=== PATIENT | female | born 1950 | race Caucasian/White ===

== ENCOUNTER 2017-09-03 15:07 | Emergency (ER) | payer MEDICARE, BC ==
[2017-09-03] MEDS ORDERED: fentaNYL 100 MCG/2 ML SDV ONE (15:23)
[2017-09-03] MEDS ORDERED: fentaNYL 100 MCG/2 ML SDV IM ONE (15:29)
[2017-09-03] MEDS ORDERED: fentaNYL 100 MCG/2 ML SDV IVPUSH ONE ×2 (17:23→17:45)
--- NOTE | 2017-09-03 17:38 | EDM.PDOC ---
ED HPI GENERAL MEDICAL PROBLEM - General Chief Complaint: Abdominal Pain Stated Complaint: ABD PAIN Time Seen by Provider: 09/03/17 15:20 Source of Information: Reports: Patient History Limitations: Reports: No Limitations - History of Present Illness INITIAL COMMENTS - FREE TEXT/NARRATIVE: States about noon today she started coughing hard and suddenly developed sharp pain in the right lower quadrant that has become worse. Has noted a lump in the area that is very tender. has never had pain like this in the past. No nausea or vomiting. Did have normal bowel movement yesterday. Has had appy in the past. Last oral intake was at 0600. No nausea or vomiting noted. Onset: Sudden Location: Reports: Pelvis Quality: Reports: Sharp Associated Symptoms: Denies: Fever/Chills, Nausea/Vomiting Right Lower Abdomen Pain Score (Numeric/FACES): 10 - Related Data Allergies Allergy/AdvReac Type Severity Reaction Status Date / Time codeine Allergy Itching Verified 09/03/17 15:16 Home Meds: Home Meds . [No Known Home Meds] 09/03/17 [History] Past Medical History - Past Surgical History GI Surgical History: Reports: Appendectomy Female Surgical History: Reports: Hysterectomy Social & Family History - Family History Family Medical History: Noncontributory - Tobacco Use Smoking Status *Q: Never Smoker - Caffeine Use Caffeine Use: Reports: None - Recreational Drug Use Recreational Drug Use: No ED ROS GENERAL - Review of Systems Review Of Systems: See Below Constitutional: Denies: Fever, Chills HEENT: Reports: No Symptoms Respiratory: Reports: No Symptoms Cardiovascular: Reports: No Symptoms GI/Abdominal: Reports: Abdominal Pain Musculoskeletal: Reports: No Symptoms Skin: Reports: No Symptoms Neurological: Reports: No Symptoms Psychiatric: Reports: No Symptoms ED EXAM, GI/ABD - Physical Exam Exam: See Below Exam Limited By: No Limitations General Appearance: Alert, WD/WN, Moderate Distress Ears: Normal External Exam, Normal Canal Nose: Normal Inspection Throat/Mouth: Normal Inspection, Normal Oropharynx, No Airway Compromise Head: Atraumatic, Normocephalic Neck: Normal Inspection, Supple, Non-Tender Respiratory/Chest: No Respiratory Distress, Lungs Clear, Normal Breath Sounds Cardiovascular: Regular Rate, Rhythm, No Murmur GI/Abdominal Exam: Normal Bowel Sounds, Soft, Non-Tender, No Organomegaly Extremities: No Pedal Edema, Normal Capillary Refill Neurological: Alert, Oriented Skin Exam: Warm, Dry, Intact Course - Vital Signs Last Recorded V/S: Last Vital Signs Temp 98.3 F 09/03/17 17:00 Pulse 70 09/03/17 17:00 Resp 20 09/03/17 17:00 BP 132/69 09/03/17 17:00 Pulse Ox 98 09/03/17 17:00 - Orders/Labs/Meds Orders: Active Orders 24 hr Category Date Time Status Abdomen 2V AP Flat Upright [CR] Stat Exams 09/03/17 15:27 Taken Pelvis wo Cont [CT] Stat Exams 09/03/17 17:34 Taken Sodium Chloride 0.9% [Normal Saline] 1,000 ml Med 09/03/17 18:45 Active IV ASDIRECTED Medication Orders Sodium Chloride (Normal Saline) 1,000 mls @ 100 mls/hr IV ASDIRECTED ALFRED Last Admin: 09/03/17 18:59 Dose: 100 mls/hr Labs: Laboratory Tests 09/03/17 09/03/17 09/03/17 Range/Units 15:39 15:39 15:39 WBC 15.4 H (5.0-10.0) 10^3/uL RBC 4.64 (4.00-5.50) 10^6/uL Hgb 15.1 (12.0-16.0) g/dL Hct 44.5 (37.0-47.0) % MCV 95.9 H (82.0-94.0) fL MCH 32.5 H (27.0-32.0) pg MCHC 33.9 (33.0-38.0) g/dL RDW Coeff of Xochitl 13.3 (11.0-15.0) % Plt Count 339 (150-400) 10^3/uL Neut % (Auto) 78.6 (35-85) % Lymph % (Auto) 12.1 (10-55) % [place] % (Auto) 8.6 (0-16) % Eos % (Auto) 0.4 (0-5) % Baso % (Auto) 0.3 (0-3) % Neut # (Auto) 12.07 H (1.80-7.00) 10^3/uL Lymph # (Auto) 1.86 (1.00-4.80) 10^3/uL [place] # (Auto) 1.32 H (0.00-0.80) 10^3/uL Eos # (Auto) 0.06 (0.00-0.45) 10^3/uL Baso # (Auto) 0.05 10^3/uL C-Reactive Protein 7.7 H (0.2-0.8) mg/dL Urine Color Dark yellow (YELLOW) Urine Appearance Clear (CLEAR) Urine pH 5.0 (4.5-8.0) Ur Specific [place] 1.025 H (1.003-1.020) Urine Protein Negative (NEGATIVE) mg/dL Urine Glucose (UA) Negative (NEGATIVE) mg/dL Urine Ketones 15 H (NEGATIVE) mg/dL Urine Occult Blood Negative (NEGATIVE) Urine Nitrite Negative (NEGATIVE) Urine Bilirubin Small H (NEGATIVE) Urine Urobilinogen 0.2 (0.2-1.0) EU/dL Ur Leukocyte Esterase Trace H (NEGATIVE) Urine RBC Not seen (0-5) /HPF Urine WBC 0-5 (0-5) /HPF Ur Squamous Epith Cells Moderate H (NOT SEEN) /HPF Urine Bacteria Few H (NOT SEEN) /HPF Urine Mucus Many H (NOT SEEN) /HPF Meds: Medications Generic Name Dose Route Start Last Admin Trade Name Freq PRN Reason Stop Dose Admin Sodium Chloride 1,000 mls @ 100 mls/hr 09/03/17 18:45 09/03/17 18:59 Normal Saline IV 100 mls/hr ASDIRECTED ALFRED Administration Discontinued Medications Generic Name Dose Route Start Last Admin Trade Name Freq PRN Reason Stop Dose Admin Fentanyl 50 mcg 09/03/17 15:29 09/03/17 15:35 Sublimaze IM 09/03/17 15:30 50 mcg ONETIME ONE Administration Fentanyl Confirm 09/03/17 15:23 09/03/17 17:16 Sublimaze Administered 09/03/17 15:24 Not Given Dose 100 mcg .ROUTE .STK-MED ONE Fentanyl 25 mcg 09/03/17 17:23 09/03/17 17:30 Sublimaze IVPUSH 09/03/17 17:24 25 mcg ONETIME ONE Administration Fentanyl 25 mcg 09/03/17 17:45 09/03/17 18:30 Sublimaze IVPUSH 09/03/17 17:46 25 mcg ONETIME ONE Administration - Re-Assessments/Exams Free Text/Narrative Re-Assessment/Exam: 09/03/17 1700- pain continues. Unable to reduce mass in the right lower quadrant after giving pain meds. pain meds repeated Will CT scan pelvis to evaluate for incarcerated hernia or other cause of pain. 09/03/17 18:[address] scan with Dr. Lu radiologist. He reports that she has an incarcerated inguinal hernia on the right. 09/03/17 18:30 Called one call at [facility] and discussed with Dr. Maya Magana report and she will accept in transfer. Will transfer by ambulance to [place] with pain meds given prior to transfer and with IV fluids. 09/03/17 18:46 Discussed transfer with the pt and her . Benefits of transfer do include that surgeon will be available which is not here, pain control. Risk of not transferring will include of bowel, increase in pain , infection. They voice understanding and wish to proceed with the transfer. Departure - Departure Time of Disposition: 19:08 Disposition: DC/Tfer to Acute Hospital 02 Condition: Serious Clinical Impression: Incarcerated right inguinal hernia - Discharge Information Referrals: PCP,Unknown [Primary Care Provider] - Forms: ED Department Discharge Additional Instructions: Remain NPO IV NS at 100 ml per hour enroute accepting MD is Dr. Maya Magana at [facility] ER- [place] Fentanyl 25 mcg q2h prn for pain enroute to [place]. - Problem List & Annotations (1) Incarcerated right inguinal hernia SNOMED Code(s): 113115123 Code(s): K40.30 - UNIL INGUINAL HERNIA, W OBST, W/O GANGR, NOT SPCF RECUR Status: Acute Priority: High Current Visit: Yes - My Orders Last 24 Hours: My Active Orders 09/03/17 15:27 Abdomen 2V AP Flat Upright [CR] Stat 09/03/17 17:34 Pelvis wo Cont [CT] Stat 09/03/17 18:45 Sodium Chloride 0.9% [Normal Saline] 1,000 ml IV ASDIRECTED - Assessment/Plan Last 24 Hours: My Active Orders 09/03/17 15:27 Abdomen 2V AP Flat Upright [CR] Stat 09/03/17 17:34 Pelvis wo Cont [CT] Stat 09/03/17 18:45 Sodium Chloride 0.9% [Normal Saline] 1,000 ml IV ASDIRECTED
[2017-09-03] MEDS ORDERED: Sodium Chloride 0.9% 1,000 ML IV SCH (18:45)
[2017-09-03] MEDS ORDERED: fentaNYL 100 MCG/2 ML SDV IVPUSH PRN (19:08)
== END 2017-09-03 20:20 ==
LOC: CC.ED 15:07
DX: K40.30 Unilateral inguinal hernia, with obstruction, without gangrene, not specified as recurrent (principal); Z88.5 Allergy status to narcotic agent
CPT/HCPCS: 36415; 72192; 74020; 81001; 85025; 86140; 96361; 96372; 96374; 96376; 99285; J3010; J7030; 99284

== ENCOUNTER 2019-02-27 20:51 | Emergency (ER) | payer MEDICARE, BC ==
--- NOTE | 2019-02-27 21:10 | EDM.PDOC ---
ED HPI GENERAL MEDICAL PROBLEM - General Chief Complaint: Gastrointestinal Problem Stated Complaint: RECTAL BLEED Time Seen by Provider: 02/27/19 20:57 Source of Information: Reports: Patient History Limitations: Reports: No Limitations - History of Present Illness INITIAL COMMENTS - FREE TEXT/NARRATIVE: patient presents to ER with complaints of bright red blood from rectum. States first noted around 0900 today and has changed her pad 5 times prior to presenting here. She relates she is aware of having hemorrhoids that have bled in the past before but they often burn when that occurs. Has no rectal pain. She is currently on Plavix. No previous history of bowel concerns, no prior colonoscopy in the past. Admits to mild LLQ abdominal discomfort, more down in to the groin now this evening. She denies any dizziness/lightheadedness. No nausea or vomiting. No fevers. Onset: Today, Gradual Duration: Hour(s):, Constant Quality: Reports: Ache Severity: Mild Associated Symptoms: Denies: Chest Pain, Cough, Fever/Chills, Loss of Appetite, Nausea/Vomiting, Shortness of Breath, Syncope Left Lower Abdomen Pain Score (Numeric/FACES): 3 - Related Data Allergies Allergy/AdvReac Type Severity Reaction Status Date / Time codeine Allergy Itching Verified 02/27/19 20:51 hydrocodone Allergy Itching Verified 02/27/19 20:51 rosuvastatin [From Crestor] Allergy Itching Verified 02/27/19 20:51 Home Meds: Home Meds Acetaminophen [Tylenol Extra Strength] 1,000 mg PO Q6H PRN 10/13/18 [History] Aspirin [Adult Low Dose Aspirin EC] 162 mg PO BEDTIME 10/13/18 [History] Cyanocobalamin (Vitamin B12) [Vitamin B12] 1 injection IM Q30D 10/13/18 [History ] Ibuprofen 400 mg PO Q6H PRN 10/13/18 [History] Clopidogrel Bisulfate [Clopidogrel] 75 mg PO BEDTIME 02/27/19 [History] Past Medical History HEENT History: Reports: Impaired Vision Cardiovascular History: Reports: High Cholesterol, Hypertension Respiratory History: Reports: COPD Gastrointestinal History: Reports: Hemorrhoids VP RESPIRATORY History: Reports: - Past Surgical History Cardiovascular Surgical History: Reports: Other (See Below) Other Cardiovascular Surgeries/Procedures: multiple stents GI Surgical History: Reports: Appendectomy Female Surgical History: Reports: Hysterectomy, Oophorectomy Musculoskeletal Surgical History: Reports: Arthroscopic Knee, Shoulder Surgery, Other (See Below) Other Musculoskeletal Surgeries/Procedures:: back surgery, cyst removal Social & Family History - Family History Family Medical History: Noncontributory Cardiac: Reports: Hypertension - Tobacco Use Smoking Status *Q: Current Every Day Smoker Years of Tobacco use: 50 Packs/Tins Daily: 0.2 - Caffeine Use Caffeine Use: Reports: Coffee - Recreational Drug Use Recreational Drug Use: No - Living Situation & Occupation Living situation: Reports: , with Family ED ROS GENERAL - Review of Systems Review Of Systems: See Below Constitutional: Denies: Fever, Chills, Malaise, Weakness, Fatigue, Decreased Appetite HEENT: Reports: No Symptoms Respiratory: Denies: Shortness of Breath, Cough Cardiovascular: Denies: Chest Pain, Edema, Lightheadedness Endocrine: Denies: Fatigue GI/Abdominal: Reports: Abdominal Pain, Hematochezia (bright red blood noted throughout day, not just with stools. Stools soft in nature and brown). Denies : Nausea, Vomiting : Reports: No Symptoms Musculoskeletal: Reports: No Symptoms Skin: Reports: No Symptoms Neurological: Reports: No Symptoms Psychiatric: Reports: No Symptoms ED EXAM, GI/ABD - Physical Exam Exam: See Below Exam Limited By: No Limitations General Appearance: Alert, WD/WN, No Apparent Distress Ears: Normal External Exam, Normal TMs Nose: Normal Inspection, Normal Mucosa, No Blood Throat/Mouth: Normal Inspection, Normal Oropharynx Head: Normocephalic Neck: Normal Inspection, Supple, Non-Tender Respiratory/Chest: No Respiratory Distress, Lungs Clear, Normal Breath Sounds Cardiovascular: Regular Rate, Rhythm GI/Abdominal Exam: Normal Bowel Sounds, Soft, Non-Tender Rectal (Female) Exam: Hemorrhoids (Has 3 nonthrombosed hemorrhoids noted, one thrombosed. Active bleeding noted from the thrombosed hemorrhoid. Inserted Anusol HC supp. ) Extremities: Normal Inspection, No Pedal Edema Neurological: Alert, Oriented Skin Exam: Warm, Dry Course - Vital Signs Last Recorded V/S: Last Vital Signs Temp 97.6 F 02/27/19 20:53 Pulse 80 02/27/19 21:28 Resp 18 02/27/19 20:53 BP 124/72 02/27/19 21:28 Pulse Ox 97 02/27/19 20:53 - Orders/Labs/Meds Orders: Active Orders 24 hr Category Date Time Status Abdomen 2V AP Flat Upright [CR] Stat Exams 02/27/19 21:09 Taken CULTURE URINE [RM] Stat Lab 02/27/19 21:19 Received Labs: Laboratory Tests 02/27/19 02/27/19 02/27/19 Range/Units 21:19 21:25 21:25 WBC 12.5 H (5.0-10.0) 10^3/uL RBC 3.85 L (4.00-5.50) 10^6/uL Hgb 12.2 (12.0-16.0) g/dL Hct 35.9 L (37.0-47.0) % MCV 93.2 (82.0-94.0) fL MCH 31.7 (27.0-32.0) pg MCHC 34.0 (33.0-38.0) g/dL RDW Coeff of Xochitl 14.6 (11.0-15.0) % Plt Count 444 H (150-400) 10^3/uL Neut % (Auto) 61.6 (35-85) % Lymph % (Auto) 24.4 (10-55) % [place] % (Auto) 10.9 (0-16) % Eos % (Auto) 2.3 (0-5) % Baso % (Auto) 0.8 (0-3) % Neut # (Auto) 7.71 H (1.80-7.00) 10^3/uL Lymph # (Auto) 3.06 (1.00-4.80) 10^3/uL [place] # (Auto) 1.37 H (0.00-0.80) 10^3/uL Eos # (Auto) 0.29 (0.00-0.45) 10^3/uL Baso # (Auto) 0.10 10^3/uL Sodium 140 (136-145) mEq/L Potassium 4.0 (3.5-5.0) mEq/L Chloride 103 (98-106) mEq/L Carbon Dioxide 27 (21-32) mmol/L BUN 14 (7-18) mg/dL Creatinine 0.8 (0.6-1.0) mg/dL Est Cr Clr Drug Dosing 58.12 mL/min Estimated GFR (MDRD) > 60 (>=60) mL/min Glucose 112 H (75-99) mg/dL Calcium 8.9 (8.4-10.1) mg/dL C-Reactive Protein 3.0 H (0.2-0.8) mg/dL Urine Color Light yellow (YELLOW) Urine Appearance Clear (CLEAR) Urine pH 7.0 (4.5-8.0) Ur Specific [place] 1.015 (1.003-1.020) Urine Protein Negative (NEGATIVE) mg/dL Urine Glucose (UA) Negative (NEGATIVE) mg/dL Urine Ketones Negative (NEGATIVE) mg/dL Urine Occult Blood Small H (NEGATIVE) Urine Nitrite Negative (NEGATIVE) Urine Bilirubin Negative (NEGATIVE) Urine Urobilinogen 0.2 (0.2-1.0) EU/dL Ur Leukocyte Esterase Trace H (NEGATIVE) Urine RBC 0-5 (0-5) /HPF Urine WBC 0-5 (0-5) /HPF Ur Squamous Epith Cells Occasional H (NOT SEEN) /HPF Urine Bacteria Occasional H (NOT SEEN) /HPF Urinalysis Comment Meds: Medications Discontinued Medications Generic Name Dose Route Start Last Admin Trade Name Freq PRN Reason Stop Dose Admin Hydrocortisone Acetate 25 mg 02/27/19 21:19 02/27/19 21:27 Anucort-Hc RECTAL 02/27/19 21:20 25 mg NOW STA Administration Hydrocortisone Acetate Confirm 02/27/19 22:40 Anucort-Hc Administered 02/27/19 22:41 Dose 50 mg .ROUTE .STK-MED ONE - Re-Assessments/Exams Free Text/Narrative Re-Assessment/Exam: 02/27/19 22:33 Repeat rectal exam. No further active bleeding noted from hemorrhoid. No blood in pad now after 30". Will discharge home with anusol HC supp for tomorrow, fill script on Friday. Follow up with Arnoldo, consider colonoscopy. Departure - Departure Time of Disposition: 22:35 Disposition: Home, Self-Care 01 Condition: Good Clinical Impression: Hemorrhoid thrombosis - Discharge Information *PRESCRIPTION DRUG MONITORING PROGRAM REVIEWED*: No *COPY OF PRESCRIPTION DRUG MONITORING REPORT IN PATIENT PEBBLES: No Referrals: Son Tyler, SETH [Primary Care Provider] - Forms: ED Department Discharge Additional Instructions: 1. Anusol HC suppository- insert twice a day for 5 days 2. Monitor for further bleeding 3. Follow up with Arnoldo in one week, consider colonoscopy 4. Call with questions or concerns. - My Orders Last 24 Hours: My Active Orders 02/27/19 21:09 Abdomen 2V AP Flat Upright [CR] Stat 02/27/19 21:19 CULTURE URINE [RM] Stat - Assessment/Plan Last 24 Hours: My Active Orders 02/27/19 21:09 Abdomen 2V AP Flat Upright [CR] Stat 02/27/19 21:19 CULTURE URINE [RM] Stat
[2019-02-27] MEDS ORDERED: Hydrocortisone Acetate 25 MG Supp RECTAL STA ×2 (21:19→22:54)
[2019-02-27 21:43] LABS: CHLORIDE,CL 103 mEq/L (98-106); SODIUM,NA 140 mEq/L (136-145)
[2019-02-27] MEDS ORDERED: Hydrocortisone Acetate 25 MG Supp ONE (22:40)
== END 2019-02-27 22:50 | disposition home or self-care (01) ==
LOC: SUPCPDRO 20:51 → CC.ED 20:51
DX: K64.5 Perianal venous thrombosis (principal); F17.210 Nicotine dependence, cigarettes, uncomplicated; I10 Essential (primary) hypertension; E78.00 Pure hypercholesterolemia, unspecified; J44.9 Chronic obstructive pulmonary disease, unspecified; Z79.82 Long term (current) use of aspirin; Z79.899 Other long term (current) drug therapy; Z88.5 Allergy status to narcotic agent; Z88.6 Allergy status to analgesic agent; Z88.8 Allergy status to other drugs, medicaments and biological substances
CPT/HCPCS: 36415; 74019; 80048; 81001; 85025; 86140; 87086; 99283; 99283-25; A9270-GY

== ENCOUNTER 2021-03-17 09:33 | Emergency (ER) | payer MEDICARE, BC ==
--- NOTE | 2021-03-17 09:44 | EDM.PDOC ---
ED HPI GENERAL MEDICAL PROBLEM - General Chief Complaint: General Stated Complaint: Tick Bite LLE Time Seen by Provider: 03/17/21 09:33 Source of Information: Reports: Patient History Limitations: Reports: No Limitations - History of Present Illness Onset Date: 03/10/21 Location: Reports: Lower Extremity, Left Front/Back Body Image: 1 - redness, center tic bite location. Does not have bullseye appearance. Severity: Mild Improves with: Reports: None Worsens with: Reports: None Associated Symptoms: Denies: Confusion, Chest Pain, Cough, cough w sputum, Diaphoresis, Fever/Chills, Headaches, Loss of Appetite, Malaise, Nausea/Vomiting, Rash, Seizure, Shortness of Breath, Syncope, Weakness - Related Data Allergies Allergy/AdvReac Type Severity Reaction Status Date / Time codeine Allergy Itching Verified 03/17/21 09:41 hydrocodone Allergy Itching Verified 03/17/21 09:41 rosuvastatin [From Crestor] Allergy Itching Verified 03/17/21 09:41 Home Meds: Home Meds Acetaminophen [Tylenol Extra Strength] 1,000 mg PO Q6H PRN 10/13/18 [History] Aspirin [Adult Low Dose Aspirin EC] 162 mg PO BEDTIME 10/13/18 [History] Cyanocobalamin (Vitamin B12) [Vitamin B12] 1 injection IM Q30D 10/13/18 [History] Ibuprofen 400 mg PO Q6H PRN 10/13/18 [History] Clopidogrel Bisulfate [Clopidogrel] 75 mg PO BEDTIME 02/27/19 [History] Doxycycline [Vibramycin] 100 mg PO BID #20 cap 03/17/21 [Rx] Past Medical History HEENT History: Reports: Impaired Vision Cardiovascular History: Reports: High Cholesterol, Hypertension Respiratory History: Reports: COPD Gastrointestinal History: Reports: Hemorrhoids [employer]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: - Past Surgical History Cardiovascular Surgical History: Reports: Other (See Below) Other Cardiovascular Surgeries/Procedures: multiple stents GI Surgical History: Reports: Appendectomy Female Surgical History: Reports: Hysterectomy, Oophorectomy Musculoskeletal Surgical History: Reports: Arthroscopic Knee, Shoulder Surgery, Other (See Below) Other Musculoskeletal Surgeries/Procedures:: back surgery, cyst removal Social & Family History - Family History Family Medical History: No Pertinent Family History Cardiac: Reports: Hypertension - Caffeine Use Caffeine Use: Reports: Coffee - Living Situation & Occupation Living situation: Reports: , with Family ED ROS GENERAL - Review of Systems Review Of Systems: See Below Constitutional: Reports: Fatigue HEENT: Reports: No Symptoms Respiratory: Reports: No Symptoms Cardiovascular: Reports: No Symptoms Endocrine: Reports: No Symptoms GI/Abdominal: Reports: No Symptoms : Reports: No Symptoms Musculoskeletal: Reports: No Symptoms Skin: Reports: Erythema (circular red rash tic bite location LLL) Neurological: Reports: No Symptoms Psychiatric: Reports: No Symptoms Hematologic/Lymphatic: Reports: No Symptoms Immunologic: Reports: No Symptoms ED EXAM, GENERAL - Physical Exam Exam: See Below Exam Limited By: No Limitations General Appearance: Alert, WD/WN, No Apparent Distress Head: Atraumatic, Normocephalic Neck: Normal Inspection, Supple, Non-Tender, Full Range of Motion Respiratory/Chest: No Respiratory Distress, No Accessory Muscle Use, Rhonchi (mildly throughout) Cardiovascular: Normal Peripheral Pulses, Regular Rate, Rhythm, No Edema, No Gallop, No JVD, No Murmur, No Rub Peripheral Pulses: 2+: Radial (L), Radial (R), Posterior Tibial (L), Posterior Tibial (R) GI/Abdominal: Soft, Non-Tender, No Organomegaly Back Exam: Normal Inspection, Full Range of Motion Extremities: Normal Inspection (other than tic bite location), Normal Range of Motion, Non-Tender, No Pedal Edema, Normal Capillary Refill Neurological: Alert, Oriented Psychiatric: Normal Affect, Normal Mood Skin Exam: Warm, Dry, Intact, Normal Color, No Rash, Erythema (circular redness LLL posterior thigh. No streaking, no heat, no drainage, not circumferential, not bullseye appearance. ) Lymphatic: No Adenopathy Departure - Departure Time of Disposition: 09:38 Disposition: Home, Self-Care 01 Condition: Fair Clinical Impression: Cellulitis Qualifiers: Site of cellulitis: extremity Site of cellulitis of extremity: lower extremity Laterality: left Qualified Code(s): L03.116 - Cellulitis of left lower limb - Discharge Information *PRESCRIPTION DRUG MONITORING PROGRAM REVIEWED*: Not Applicable *COPY OF PRESCRIPTION DRUG MONITORING REPORT IN PATIENT PEBBLES: Not Applicable Prescriptions: Doxycycline [Vibramycin] 100 mg PO BID #20 cap Instructions: Tick Bite Information, Adult, [id number], Cellulitis, Adult, [id number] Forms: ED Department Discharge Additional Instructions: Follow up with your primary care provider: If redness continues, or other symptoms, may elect to perform lab testing Return to the ER for worsening of condition or any emergent concerns such as increased redness, fever, vomiting Wash the area with soap and water twice a day Doxycycline 100mg 1 pill twice a day for 10 days #20 no refill: Sent to [facility] - Assessment/Plan Plan: PLEASE SEE RN NOTE FOR PFSH
== END 2021-03-17 09:53 | disposition home or self-care (01) ==
LOC: CC.ED 09:33
DX: L03.116 Cellulitis of left lower limb (principal); I10 Essential (primary) hypertension; J44.9 Chronic obstructive pulmonary disease, unspecified; Z79.82 Long term (current) use of aspirin; Z79.02 Long term (current) use of antithrombotics/antiplatelets; Z79.899 Other long term (current) drug therapy; Z88.5 Allergy status to narcotic agent; Z88.8 Allergy status to other drugs, medicaments and biological substances
CPT/HCPCS: 99283

== ENCOUNTER 2021-04-03 13:33 | Emergency (ER) | payer MEDICARE, BC ==
[2021-04-03] MEDS: Aspirin 81 MG Tab.Chew PO ONE ×2 (14:02→14:54)
--- NOTE | 2021-04-03 14:06 | EDM.PDOC ---
ED HPI GENERAL MEDICAL PROBLEM - General Chief Complaint: General Stated Complaint: CP Time Seen by Provider: 04/03/21 13:55 Source of Information: Reports: Patient History Limitations: Reports: No Limitations - History of Present Illness INITIAL COMMENTS - FREE TEXT/NARRATIVE: Kimi is a 70 year old female who presents with a 2 hour history of chest pain, shortness of breath. Was working at [employer] and started feeling pain and weakness. She had not eaten yet today but states that is not unusual. 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 Admits to get sweaty and nauseated. Has history of CAD with 4 stents placed in the past. Had an angioplasty done due to aneurysm of aorta. Denies lightheadedness. No cough, sinus congestion, fevers. No abdominal pain. No urinary symptoms. Onset: Today, Sudden Duration: Hour(s): Location: Reports: Chest Quality: Reports: Ache, Sharp Severity: Moderate Improves with: Reports: None Associated Symptoms: Reports: Chest Pain, Cough, Nausea/Vomiting, Shortness of Breath. Denies: Confusion, cough w sputum, Loss of Appetite, Malaise, Syncope, Weakness - Related Data Allergies Allergy/AdvReac Type Severity Reaction Status Date / Time codeine Allergy Itching Verified 04/03/21 13:52 hydrocodone Allergy Itching Verified 04/03/21 13:52 rosuvastatin [From Crestor] Allergy Itching Verified 04/03/21 13:52 Home Meds: Home Meds Acetaminophen [Tylenol Extra Strength] 1,000 mg PO Q6H PRN 10/13/18 [History] Aspirin [Adult Low Dose Aspirin EC] 162 mg PO BEDTIME 10/13/18 [History] Cyanocobalamin (Vitamin B12) [Vitamin B12] 1 injection IM Q30D 10/13/18 [History] Ibuprofen 400 mg PO Q6H PRN 10/13/18 [History] Clopidogrel Bisulfate [Clopidogrel] 75 mg PO BEDTIME 02/27/19 [History] Calcium Carbonate [Calcium] 1 tab PO DAILY 04/03/21 [History] Cholecalciferol (Vitamin D3) [Vitamin D] 1 tab PO DAILY 04/03/21 [History] Zinc 1 tab PO DAILY 04/03/21 [History] Past Medical History HEENT History: Reports: Impaired Vision Cardiovascular History: Reports: High Cholesterol, Hypertension Respiratory History: Reports: COPD Gastrointestinal History: Reports: Hemorrhoids 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: - Past Surgical History Cardiovascular Surgical History: Reports: Other (See Below) Other Cardiovascular Surgeries/Procedures: multiple stents GI Surgical History: Reports: Appendectomy Female Surgical History: Reports: Hysterectomy, Oophorectomy Musculoskeletal Surgical History: Reports: Arthroscopic Knee, Shoulder Surgery, Other (See Below) Other Musculoskeletal Surgeries/Procedures:: back surgery, cyst removal Social & Family History - Family History Family Medical History: No Pertinent Family History Cardiac: Reports: Hypertension - Tobacco Use Tobacco Use Status *Q: Current Every Day Tobacco User Tobacco Use Within Last Twelve Months: Cigarettes - Caffeine Use Caffeine Use: Reports: None - Living Situation & Occupation Living situation: Reports: , with Family ED ROS GENERAL - Review of Systems Review Of Systems: See Below Constitutional: Denies: Fever, Chills, Fatigue, Decreased Appetite HEENT: Denies: Ear Pain, Sinus Problem, Throat Pain Respiratory: Reports: Shortness of Breath Cardiovascular: Reports: Chest Pain. Denies: Edema, Lightheadedness Endocrine: Denies: Fatigue GI/Abdominal: Reports: Nausea. Denies: Abdominal Pain, Constipation, Diarrhea, Vomiting : Reports: No Symptoms Musculoskeletal: Reports: No Symptoms Skin: Reports: No Symptoms Neurological: Reports: No Symptoms ED EXAM, GENERAL - Physical Exam Exam: See Below Exam Limited By: No Limitations General Appearance: Alert, WD/WN, No Apparent Distress Ears: Normal External Exam, Normal TMs Nose: Normal Inspection, Normal Mucosa, No Blood Throat/Mouth: Normal Inspection, Normal Oropharynx Head: Normocephalic Neck: Normal Inspection, Supple, Non-Tender Respiratory/Chest: No Respiratory Distress, Decreased Breath Sounds, Wheezing Cardiovascular: Normal Peripheral Pulses, Regular Rate, Rhythm, No Edema GI/Abdominal: Normal Bowel Sounds, Soft, Non-Tender Extremities: Normal Inspection, No Pedal Edema Neurological: Alert, Oriented Skin Exam: Warm, Dry Course - Vital Signs Last Recorded V/S: Last Vital Signs Temp 96.6 F L 04/03/21 13:45 Pulse 75 04/03/21 14:39 Resp 13 04/03/21 14:39 BP 144/81 H 04/03/21 14:39 Pulse Ox 97 04/03/21 14:39 - Orders/Labs/Meds Orders: Active Orders 24 hr Category Date Time Status Chest 2V [CR] Stat Exams 04/03/21 13:47 Taken EKG 12 Lead [EK] Stat Ther 04/03/21 13:36 Ordered Labs: Laboratory Tests 04/03/21 04/03/21 04/03/21 Range/Units 13:55 13:55 13:55 WBC 10.9 (4.0-11.0) 10^3/uL RBC 4.14 (4.00-5.50) x10^6/uL Hgb 13.6 (12.0-16.0) g/dL Hct 39.2 (37.0-47.0) % MCV 94.7 (83.0-97.0) fL MCH 32.9 H (27.0-32.0) pg MCHC 34.7 (32.0-36.0) g/dL RDW Coeff of Xochitl 13.5 (11.0-15.0) % Plt Count 343 (150-400) 10^3/uL Immature Gran % (Auto) 0.3 (0.0-4.9) % Neut % (Auto) 63.5 (41-71) % Lymph % (Auto) 25.5 (24-44) % [place] % (Auto) 8.8 (0-10) % Eos % (Auto) 1.3 (0-6) % Baso % (Auto) 0.6 (0-1) % Neut # (Auto) 6.89 (1.80-8.00) x10^3/uL Lymph # (Auto) 2.77 (0.60-5.00) 10^3/uL [place] # (Auto) 0.95 (0.00-1.50) 10^3/uL Eos # (Auto) 0.14 (0.00-1.50) 10^3/uL Baso # (Auto) 0.07 (0.00-0.50) 10^3/uL Immature Gran # (Auto) 0.03 (0.00-0.49) 10^3/uL PT 9.9 (9.7-12.3) SEC INR 0.90 L (0.92-1.18) APTT 27.2 (23.2-32.3) SEC D-Dimer, Quantitative 0.51 H (0.00-0.50) Sodium 138 (136-145) mEq/L Potassium 3.9 (3.5-5.0) mEq/L Chloride 102 (98-106) mEq/L Carbon Dioxide 23 (21-32) mmol/L BUN 17 (7-18) mg/dL Creatinine 0.9 (0.6-1.0) mg/dL Est Cr Clr Drug Dosing TNP Estimated GFR (MDRD) > 60 (>=60) mL/min Glucose 97 (75-99) mg/dL Calcium 8.8 (8.4-10.1) mg/dL Magnesium 1.9 (1.8-2.4) mg/dL Total Bilirubin 0.4 (0.0-1.0) mg/dL AST 16 (15-37) U/L ALT 25 (12-78) U/L Alkaline Phosphatase 94 (46-116) U/L Lactate Dehydrogenase 135 (100-190) U/L Creatine Kinase 76 (21-215) U/L Troponin I < 0.017 (0.00-0.06) ng/mL Total Protein 6.9 (6.4-8.2) g/dL Albumin 3.7 (3.4-5.0) g/dL Lipase 333 (73-393) U/L Meds: Medications Discontinued Medications Generic Name Dose Route Start Last Admin Trade Name Freq PRN Reason Stop Dose Admin Aspirin 364 mg 04/03/21 14:00 04/03/21 14:02 Aspirin 81 Mg Tab.Chew PO 04/03/21 14:01 324 mg ONETIME ONE Administration - Re-Assessments/Exams Free Text/Narrative Re-Assessment/Exam: 04/03/21 Labs unremarkable. Chest xray without infiltrate. EKG NSR. Much discussion held with patient and wanting to repeat troponin in 4 hours to ensure not of cardiac nature due to history. Patient is adamant about returning home due to pets without care there. Advised of risks of returning concerns and could potentially be fatal as [place] 13 [place] town. Is willing to take that risk and return if needed. AMA form signed. Departure - Departure Time of Disposition: 14:41 Disposition: Home, Self-Care 01 Condition: Fair Clinical Impression: Atypical chest pain - Discharge Information *PRESCRIPTION DRUG MONITORING PROGRAM REVIEWED*: No *COPY OF PRESCRIPTION DRUG MONITORING REPORT IN PATIENT PEBBLES: No Instructions: Chest Wall Pain, [id number] Referrals: Son Tyler PA-C [Primary Care Provider] - Forms: ED Department Discharge Additional Instructions: 1. Rest 2. Push fluids 3. Consistent meal intake 4. Return if develop more chest pain, shortness of breath or if status changes Sepsis Event Note (ED) - Focused Exam Vital Signs: Vital Signs Temp Pulse Resp BP Pulse Ox 04/03/21 14:39 75 13 144/81 H 97 04/03/21 14:29 76 16 135/78 93 L 04/03/21 14:15 147/80 H 04/03/21 14:00 147/84 H 04/03/21 13:45 96.6 F L 81 27 H 154/84 H 98 - My Orders Last 24 Hours: My Active Orders 04/03/21 13:36 EKG 12 Lead [EK] Stat 04/03/21 13:47 Chest 2V [CR] Stat - Assessment/Plan Last 24 Hours: My Active Orders 04/03/21 13:36 EKG 12 Lead [EK] Stat 04/03/21 13:47 Chest 2V [CR] Stat
[2021-04-03 14:14] LABS: CHLORIDE,CL 102 mEq/L (98-106); SODIUM,NA 138 mEq/L (136-145)
[2021-04-03 14:32] LABS: PTT,PARTIAL THROMBOPLSTIN TIME 27.2 SEC (23.2-32.3)
== END 2021-04-03 14:55 | disposition left against medical advice (07) ==
LOC: CC.ED 13:33
DX: R07.89 Other chest pain (principal); E78.00 Pure hypercholesterolemia, unspecified; I10 Essential (primary) hypertension; J44.9 Chronic obstructive pulmonary disease, unspecified; Z79.82 Long term (current) use of aspirin; Z79.02 Long term (current) use of antithrombotics/antiplatelets; Z88.5 Allergy status to narcotic agent; Z88.8 Allergy status to other drugs, medicaments and biological substances
CPT/HCPCS: 36415; 71046; 80053; 82550; 83615; 83690; 83735; 84484; 85025; 85379; 85610; 85730; 93005; 93010; 99284; 99285-25; A9270-GY

== ENCOUNTER → 2021-11-30 | Day surgery (SDC) | payer MEDICARE, BC ==
[~2021-11-30] MED LIST: Flumazenil 0.1 MG/ML 10 ML MDV ONE; Ketamine 200 MG/20 ML MDV ONE; Lactated Ringers 1,000 ML IV SCH; Lidocaine 2% 5 ML SDV ONE; Midazolam 1 MG/ML 2 ML SDV ONE; Phenylephrine 1% 10 MG/ML SDV ONE; Propofol 200 MG/20 ML SDV ONE; fentaNYL 100 MCG/2 ML SDV ONE
== END ==
LOC: CC.SDS 07:43
PROVIDERS: ATTEND Family Medicine
DX: Z12.11 Encounter for screening for malignant neoplasm of colon (principal); D12.3 Benign neoplasm of transverse colon; K52.9 Noninfective gastroenteritis and colitis, unspecified; K21.9 Gastro-esophageal reflux disease without esophagitis; K29.60 Other gastritis without bleeding; K57.30 Diverticulosis of large intestine without perforation or abscess without bleeding; K29.50 Unspecified chronic gastritis without bleeding; K31.89 Other diseases of stomach and duodenum; F17.210 Nicotine dependence, cigarettes, uncomplicated; M81.0 Age-related osteoporosis without current pathological fracture; E78.5 Hyperlipidemia, unspecified; I73.9 Peripheral vascular disease, unspecified; E53.8 Deficiency of other specified B group vitamins; Z88.8 Allergy status to other drugs, medicaments and biological substances; Z88.5 Allergy status to narcotic agent; Z79.899 Other long term (current) drug therapy; Z79.82 Long term (current) use of aspirin
CPT/HCPCS: 87081; 88305; 88342; J2250; J2370; J2704; J3010; J7120

== ENCOUNTER 2023-06-28 10:50 | Emergency (ER) | payer OTHER, MEDICARE, BC ==
[2023-06-28] MEDS: Lidocaine 1% 5 ML VIAL INJECT ONE (11:16)
== END 2023-06-28 11:35 | disposition home or self-care (01) ==
LOC: CC.ED 10:50
DX: S61.012A Laceration without foreign body of left thumb without damage to nail, initial encounter (principal); I10 Essential (primary) hypertension; J44.9 Chronic obstructive pulmonary disease, unspecified; Z88.5 Allergy status to narcotic agent; Z88.8 Allergy status to other drugs, medicaments and biological substances; Z79.82 Long term (current) use of aspirin; Z79.899 Other long term (current) drug therapy; W26.0XXA Contact with knife, initial encounter; Y92.89 Other specified places as the place of occurrence of the external cause; Y99.0 Civilian activity done for income or pay
CPT/HCPCS: 12001; 99282; 99283; J3490